=== PATIENT | female | born 2000 | race Caucasian/White ===

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

== ENCOUNTER 2025-03-09 17:37 | Emergency (ER) | payer OTHER ==
[2025-03-09 17:46] VITALS: BP 128/72; TEMP 97.8; BMI 25.6
[2025-03-09] MEDS ORDERED: ACETAMINOPHEN 500 MG TABLET (FP) ONE (18:56)
[2025-03-09] MEDS: ACETAMINOPHEN 500 MG TABLET (FP) PO ONE (18:57)
[2025-03-09 19:32] LABS: ABSOLUTE IMMATURE GRANULOCYTES 0.02 x10^3/uL (0.0-0.031); BASOPHILS # 0.03 x10^3/uL (0.01-0.08); EOSINOPHILS # 0.07 x10^3/uL (0.04-0.36); HEMATOCRIT 35.1 % (34.1-44.9); HEMOGLOBIN 10.4 g/dL (11.2-15.7); MCHC 29.6 g/dl (32.2-35.5); MEAN PLT VOLUME 8.9 fl (9.4-12.3); MONOCYTE # 0.68 x10^3/uL (0.24-0.86); MONOCYTE % 9.4 % (4.7-12.5); PLATELET COUNT 349 x10^3/uL (182-369); RDW 15.8 % (12.1-16.5)
[2025-03-09 19:54] LABS: POTASSIUM 3.9 mmol/L (3.5-5.1)
[2025-03-09 19:56] LABS: BLOOD UREA NITROGEN 9.1 mg/dL (7-18); CALCIUM 9.2 mg/dL (8.5-10.1)
[2025-03-09 19:57] LABS: ALBUMIN 3.8 g/dl (3.4-5.0); MAGNESIUM 2.1 mg/dL (1.8-2.4)
[2025-03-09 20:00] LABS: CREATININE 0.7 mg/dL (0.55-1.3)
[2025-03-09 20:02] LABS: BILIRUBIN,TOTAL 0.2 mg/dL (0.2-1); TOT PROT 7.4 g/dl (6.4-8.2)
[2025-03-09 20:42] VITALS: PULSE 80; RESP 18
== END 2025-03-09 20:42 | disposition home or self-care (01) ==
LOC: JER 17:37
DX: R00.2 Palpitations (principal); R51.9 Headache, unspecified; R07.89 Other chest pain; R20.2 Paresthesia of skin; R29.898 Other symptoms and signs involving the musculoskeletal system
CPT/HCPCS: 0241U-QW; 36415; 71046-TC-FY; 80053; 83735; 84439; 84443; 84484; 84703; 85025; 93005; 93010; 99285-25